=== PATIENT | male | born 1970 | race Caucasian/White ===

== ENCOUNTER 2018-03-28 08:45 | Inpatient (IN) | payer OTHER ==
--- NOTE | 2018-03-28 08:47 | EDPHY ---
H & P Time Seen by Provider: 03/28/18 08:46 HPI/ROS: CHIEF COMPLAINT: Chest pressure HISTORY OF PRESENT ILLNESS: The patient presents the ED after he developed substernal chest pressure after waking up this morning. The patient thought he may have simply been experiencing bad indigestion. He did take some antacids without improvement. Given the severity of the symptoms he contacted 911. The patient was noted to have no evidence of ST segment elevation on his EKG. The patient was given nitroglycerin and fentanyl with significant improvement of his symptoms. He currently complains of a 2/10 chest discomfort. The patient does have a history of hypertension which is not treated with medications. He reports his mother's had a history of myocardial infarction x2. The patient denies any history of exertional chest pain or shortness of breath. The patient denies any significant radiation of his chest discomfort. REVIEW OF SYSTEMS: A comprehensive 10 point review of systems is otherwise negative aside from elements mentioned in the history of present illness. Source: Patient - Medical/Surgical History Other PMH: Past medical history: Hypertension - Social History Alcohol Use: None Drug Use: None - Physical Exam Exam: General Appearance: Alert, no distress Eyes: Pupils equal and round no pallor or injection ENT, Mouth: Mucous membranes moist Respiratory: There are no retractions, lungs are clear to auscultation Cardiovascular: Regular rate and rhythm Gastrointestinal: Abdomen is soft and nontender, no masses, bowel sounds normal Neurological: A&O, normal motor function, normal sensory exam, normal cranial nerves Skin: Warm and dry, no rashes Musculoskeletal: Neck is supple nontender Extremities: symmetrical, full range of motion Constitutional: Initial Vital Signs Temperature (C) 36.8 C 03/28/18 08:48 Heart Rate 75 03/28/18 08:48 Respiratory Rate 16 03/28/18 08:48 Blood Pressure 144/98 H 03/28/18 08:48 O2 Sat (%) 94 03/28/18 08:48 O2 Delivery Mode Room Air Allergies/Adverse Reactions: No Known Allergies Allergy (Unverified 03/28/18 08:52) Home Medications: Medication Instructions Recorded NK [No Known Home Meds] 03/28/18 Medical Decision Making - Diagnostics EKG Interpretation: EKG: Complete interpretation has been separately recorded in the [employer] archive. Summary impression: Sinus rhythm, rate 69, the peak T-waves noted in the precordial leads Imaging Results: Imaging Impressions Chest X-Ray 03/28/18 08:52 Impression: 1. Heart size upper limits of normal. No active cardiopulmonary disease seen. ED Course/Re-evaluation: The patient presents to the ED acute chest pain that began earlier this morning. The patient arrives to the emergency department with an EKG which does demonstrate some hyperacute T-waves in the precordial leads with some minimal ST segment elevation noted in lead II and the lateral precordial leads. The patient received aspirin and nitroglycerin and fentanyl prior to arrival. He currently is complaining of 2/10 pain. I did consult with Dr. Smooth Collier from Cardiology and requested an emergent cardiology consult at 9:05AM. Bedside echo was being performed. Initial troponin is negative. The patient received additional IV morphine and nitroglycerin in the emergency department. Chest x-ray is reviewed by myself demonstrates no evidence of an abnormally wide mediastinum. 9:20 a.m.: Dr. Alberto at bedside, bedside echocardiogram does demonstrate a wall motion abnormality. The patient will be taken emergently to the cardiac catheterization lab for further evaluation. Differential Diagnosis: Differential diagnosis considered includes aortic dissection, pulmonary embolism , myocardial infarction, esophageal spasm Critical Care Time: Critical care time exclusive of procedures and exclusive of the PA's time was 35 minutes, performed by myself, Iglesia Puente MD. The patient presents to the ED with acute coronary syndrome which required the immediate consultation of our senior program manager. The patient will be taken emergently to the cardiac catheterization lab. - Data Points Laboratory Results: Laboratory Results 03/28/18 08:55 03/28/18 08:55 03/28/18 03/28/18 03/28/18 08:55 08:55 08:53 WBC 7.93 10^3/uL 10^3/uL (3.80-9.50) RBC 5.23 10^6/uL 10^6/uL (4.40-6.38) Hgb 16.9 g/dL g/dL (13.7-17.5) Hct 50.0 % % (40.0-51.0) MCV 95.6 fL fL (81.5-99.8) MCH 32.3 pg pg (27.9-34.1) MCHC 33.8 g/dL g/dL (32.4-36.7) RDW 11.9 % % (11.5-15.2) Plt Count 205 10^3/uL 10^3/uL (150-400) MPV 9.9 fL fL (8.7-11.7) Neut % (Auto) 62.3 % % (39.3-74.2) Lymph % (Auto) 30.4 % % (15.0-45.0) [place] % (Auto) 5.0 % % (4.5-13.0) Eos % (Auto) 1.0 % % (0.6-7.6) Baso % (Auto) 0.9 % % (0.3-1.7) Nucleat RBC Rel Count 0.0 % % (0.0-0.2) Absolute Neuts (auto) 4.94 10^3/uL 10^3/uL (1.70-6.50) Absolute Lymphs (auto) 2.41 10^3/uL 10^3/uL (1.00-3.00) Absolute Monos (auto) 0.40 10^3/uL 10^3/uL (0.30-0.80) Absolute Eos (auto) 0.08 10^3/uL 10^3/uL (0.03-0.40) Absolute Basos (auto) 0.07 10^3/uL 10^3/uL (0.02-0.10) Absolute Nucleated RBC 0.00 10^3/uL 10^3/uL (0-0.01) Immature Gran % 0.4 % % (0.0-1.1) Immature Gran # 0.03 10^3/uL 10^3/uL (0.00-0.10) Sodium 141 mEq/L mEq/L (135-145) Potassium 4.7 mEq/L mEq/L (3.3-5.0) Chloride 105 mEq/L mEq/L (97-110) Carbon Dioxide 26 mEq/l mEq/l (22-31) Anion Gap 10 mEq/L mEq/L (6-14) BUN 15 mg/dL mg/dL (7-23) Creatinine 1.0 mg/dL mg/dL (0.7-1.3) Estimated GFR > 60 Glucose 117 mg/dL H mg/dL (70-100) Calcium 9.6 mg/dL mg/dL (8.5-10.4) POC Troponin I 0.08 ng/mL ng/mL (0.00-0.08) Medications Given: Nitroglycerin (Nitrostat) 0.4 mg SL Q5M PRN PRN Reason: Chest Pain Last Admin: 03/28/18 09:12 Dose: 0.4 tab Point of Care Test Results: Chemistry 03/28/18 08:53 POC Troponin I 0.08 ng/mL ng/mL (0.00-0.08) Departure - Departure Disposition: [facility] Inpatient Acute Clinical Impression: Acute coronary syndrome Condition: Good Referrals: Patient,NotPresent [Primary Care Provider] - As per Instructions
[2018-03-28] MEDS ORDERED: NITROGLYCERIN 0.4 MG BTL SL PRN (09:05)
[2018-03-28 09:07] LABS: PLATELET COUNT 205 10^3/uL (150-400)
[2018-03-28] MEDS ORDERED: LIDOCAINE 1% 300 MG/30 ML SDV ONE (09:28)
[2018-03-28] MEDS ORDERED: fentaNYL 100 MCG/2 ML INJ ONE (09:28)
[2018-03-28] MEDS ORDERED: MIDAZOLAM 2 MG/2 ML VIAL ONE ×2 (09:28→10:51)
[2018-03-28] MEDS ORDERED: IOPAMIDOL (ISOVUE-370) 150 ML BTL IV ONE (09:28)
[2018-03-28] MEDS ORDERED: BIVALIRUDIN 250 MG/5 ML VIAL IV ONE (09:50)
--- NOTE | 2018-03-28 09:52 | CPEKG ---
Test Reason : OPEN Blood Pressure : / mmHG Vent. Rate : 069 BPM Atrial Rate : 069 BPM P-R Int : 183 ms QRS Dur : 099 ms QT Int : 383 ms P-R-T Axes : 044 073 041 degrees QTc Int : 411 ms Sinus rhythm Abnormal inferior Q waves ST elev, probable normal early repol pattern Confirmed by Iglesia Puente ([id number]) on 03/28/2018 9:51:48 AM Referred By: Confirmed By:Iglesia Puente
[2018-03-28] MEDS ORDERED: METOPROLOL TARTRATE 5 MG/5 ML INJ ONE (10:01)
[2018-03-28] MEDS ORDERED: ABCIXIMAB 10 MG/5 ML VIAL ONE (10:04)
--- NOTE | 2018-03-28 10:20 | GHP ---
DATE OF ADMISSION: 03/28/2018 HISTORY OF PRESENT ILLNESS: The patient is a 48-year-old man who was awakened from sleep by his alar m as usual, got up, start going around, getting around for the morning, and then felt acute onset of severe retrosternal chest pressure and indigestion, which radiated to his neck, arm, back, and jaw, a nd he felt sweaty. 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 EMS obtained an EKG and the patient was brought emergently to [facility]. His pa in was partially resolved by intravenous fentanyl established in the ambulance. EKG was obtained her e with hyperacute T-waves suggestive of an injury pattern. I was asked to see the patient in emergen cy consultation. An echocardiogram was being done at the time of the procedure and the patient had d istal anterior wall and apical hypokinesis, as well as distal inferior wall hypokinesis suggestive of myocardial injury from a wraparound type LAD. The patient's pain was down to 2/10 with oral aspirin and sublingual nitroglycerin. PAST MEDICAL HISTORY: Pertinent for recent elevations in cholesterol for which he has taken fish oil . He did have a history of hypertension, but has been off medications for over a year. He is not cu rrently taking medications. He is not diabetic. ALLERGIES: He is not known to be allergic to any medications. SOCIAL HISTORY: Pertinent for the fact that he does not smoke. He smoked as a teenager, but quit at age 22. 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 He does not abuse alcohol or illicit drugs. FAMILY HISTORY: Pertinent for positive premature family history in his mother who had her first hear t attack at age 60. PHYSICAL EXAMINATION: GENERAL: The patient is anxious and diaphoretic. VITAL SIGNS: Blood pressur e is 120/76, pulse was 68 and regular, respirations 16 and unlabored. NECK: No JVD. HEART: Normal S1, S2 with a positive S4. LUNGS: Clear to auscultation anteriorly bilaterally. ABDOMEN: Benign. Positive bowel sounds. Nondistended, nontender. EXTREMITIES: Cool, but dry and not clammy. IMPRESSION/PLAN: Acute coronary syndrome with evidence of hyperacute T-wave changes and wall motion abnormalities on echocardiogram suggestive of anterior myocardial infarction. The patient should be taken to the catheterization laboratory for definitive intervention. I have explained the risks, bruce efits, and alternatives of this course of action to the patient who understands and is willing to pro ceed as planned. Copy requested to: Primary care physician /[id number]/MODL
[2018-03-28] MEDS ORDERED: niCARdipine 25 MG/10 ML VIAL IV ONE (10:31)
[2018-03-28] MEDS ORDERED: NITROGLYCERIN 1,500 MCG/15 ML VIAL MISC ONE (10:32)
[2018-03-28] MEDS ORDERED: PRASUGREL HCL 10 MG TAB ONE (10:39)
--- NOTE | 2018-03-28 10:56 | ECHO ---
[email or web address] [address] [address] Main: [phone] Fax: Transthoracic Echocardiogram Name: MODESTA DE LEON MR#: [id number] Study Date: 03/28/2018 Study Time: 09:11 AM Date of : 1970 Age: 48 year(s) Height: 198.1 cm (78 in.) Weight: 107.96 kg (238 lb.) BSA: 2.43 m2 Gender: Male Examination: Echo Indication: Chest Pain Image Quality: Adequate Contrast: Requested by: Iglesia Puente BP: 136 mmHg/99 mmHg Heart Rate: Rhythm: Indication: Chest Pain Procedure Staff Card Runner: Anahi Avila [facility] Reading Physician: Christopher Khalil MD Requesting Provider: Conclusions: No pericardial effusion. Anterior apical akinesis. In the setting of chest pain concern for anterior wall myocardial infarction. No significant valvular abnormalities by Doppler 2 dimensional study. Measurements: Chambers Valvular Assessment AV/MV Valvular Assessment TV/PV Normal Normal Normal Name Value Range Name Value Range Name Value Range Ao Angelita (2D): 3.2 cm (1.4 cm-2.6 AV Vmax: 1.14 m/s (1 m/s-1.7 PV Vmax: 0.88 m/s (0.6 m/s-0.9 cm) m/s) m/s) IVSd (2D): 1.1 cm (0.6 cm-1.1 AV maxP mmHg ( - ) PV PGmax: 3 mmHg ( - ) cm) AV meanP mmHg ( - ) LVDd (2D): 4.8 cm (4.2 cm-5.9 LVOT Vmax: 1.02 m/s (0.7 m/s-1.1 cm) m/s) LVDs (2D): 3.3 cm (2.1 cm-4 ROGER (Vmax): 2.8 cm2 ( - ) cm) ROGER (VTI): 3.0 cm ( - ) LVPWd (2D): 1.1 cm (0.6 cm-1 MV E Vmax: 1.02 m/s ( - ) cm) MV A Vmax: 0.89 m/s ( - ) LVOTd 2.0 cm 2.0 cm mm MV E/A: 1.15 ( - ) LVEF (BP): 44 % (>=55 %) MV PHT: 0.054 s ( - ) RVDd(2D): 3.1 cm (1.9 cm-3.8 cmmm) MVA (PHT): 4.1 s ( - ) Continued Measurements: Chambers Valvular Assessment AV/MV Name Value Name Value LADs: 3.5 cm MV DecTime: 180 m/s LADs Lon.8 cm MV E/E' Septal: 11.50 LA Area: 18.3 cm2 MV E/E' Lateral: 10.60 Patient: MODESTA DE LEON Study Date: 03/28/2018 Page 1 of 2 09:11 AM LA Volume: 55 ml LA Volume Index: 22.6 ml/m2 RA Area: 14.6 cm2 Additional Vessels Name Value Ao Ascendin.3 cm Findings: Left Ventricle: Normal size left ventricle. No LV hypertrophy. Regional wall motion abnormality noted. Normal diastolic LV function. Apical hypokinesis. Right Ventricle: Normal size right ventricle. Normal RV function. Left Atrium: The left atrium is normal in size. Right Atrium: The right atrium is normal in size. Mitral Valve: The mitral valve is normal in appearance and function. Trivial mitral valve regurgitation. No mitral stenosis is present. Aortic Valve: The aortic valve is tri-leaflet. Trivial aortic valve regurgitation. No aortic valve stenosis is present. Tricuspid Valve: The tricuspid valve is normal in appearance and function. Trivial tricuspid valve regurgitation. Pulmonic Valve: The pulmonic valve is normal in appearance and function. There is no pulmonic regurgitation seen. Aorta: The aorta is normal. Normal size aortic root measuring 3.2 cm. Normal size ascending aorta measuring 3.3 cm. Pericardium: Trivial pericardial effusion. No pleural effusion. (No Signature Object) Patient: MODESTA DE LEON Study Date: 03/28/2018 Page 2 of 2 09:11 AM [id number]
[2018-03-28] MEDS ORDERED: LORazepam 2 MG/ML INJ IVP PRN (11:04)
[2018-03-28] MEDS ORDERED: ONDANSETRON DISINTEGRATING 4 MG TAB PO PRN (11:04)
[2018-03-28] MEDS ORDERED: HYDROCODONE/APAP 5/325 TAB PO PRN (11:04)
[2018-03-28] MEDS ORDERED: ATROPINE SULFATE 1 MG/10 ML SYR IVP PRN (11:04)
[2018-03-28] MEDS ORDERED: PRASUGREL HCL 10 MG TAB PO ONE (11:04)
[2018-03-28] MEDS ORDERED: ONDANSETRON 4 MG/2 ML VIAL IVP PRN (11:04)
[2018-03-28] MEDS ORDERED: ACETAMINOPHEN 325 MG TAB PO PRN (11:04)
[2018-03-28] MEDS ORDERED: TEMAZEPAM 15 MG CAP PO PRN (11:04)
[2018-03-28] MEDS ORDERED: NS 1,000 ML IV SCH (11:15)
[2018-03-28] MEDS: ROSUVASTATIN CALCIUM 20 MG TAB PO SCH (12:43)
--- NOTE | 2018-03-28 13:16 | CPIP ---
DATE OF PROCEDURE: 03/28/2018 PROCEDURE PERFORMED: 1. Selective coronary angiography. 2. Left heart catheterization. 3. Left ventriculogram. 4. Percutaneous transluminal coronary angioplasty and stent placement of the mid left anterior desce nding with the use of 3.0 x 20 Synergy drug-eluting stent. 5. Percutaneous transluminal coronary angioplasty of the proximal left anterior descending with the use of a 3.5 x 32 Synergy drug-eluting stent. 6. Intra-aortic balloon pump insertion. COMPLICATIONS: None. MOLD PARTER: Kaden Alberto MD INDICATIONS/APPROPRIATE USE CRITERIA: The patient presented with an acute coronary syndrome and hype racute T-waves consistent with that diagnosis that extended from the V1 through V6 without reciprocal change, but compatible changes in II, III, and aVF consistent with probable LAD occlusion. For this reason, the patient was encouraged to proceed emergently to the catheterization laboratory. There w as some delay in obtaining the patient's consents, which may have delayed the door to balloon time. PROCEDURE IN DETAIL: After informed consent was obtained, n.p.o. status was confirmed, the patient w as taken emergently to the cardiac catheterization laboratory. The region of the right groin was twan aned, prepped, and draped in sterile fashion. Approximately 15 cc of 1% lidocaine was utilized for l ocal anesthesia. A micropuncture set was used to gain access to the right common femoral artery. The patient then und erwent the previously mentioned diagnostic procedure with use of JR4 and a pigtail catheter. A 6-[facility] guiding catheter was used for initial approach to the left coronary system. The right coronary a rtery is dominant giving rise to posterior descending and posterolateral ventricular branch. There i s no evidence of flow-limiting obstruction, dissection, or thrombus. There is evidence of significant calcification within the LAD. There is evidence of significant calc ification within the LAD on cinefluoroscopy and there was no evidence of right to left collaterals to the LAD proper on injection of the right coronary system. The diagnostic shots were taken with a gu iding catheter because of suspected occlusion of the LAD on the basis on the patient's clinical prese ntation and his EKG changes. The left main coronary lumen is 8 mm in size and bifurcates into an LAD and circumflex system. The circumflex vessel is 3.5 mm in size proximally, gives rise to an importa nt obtuse marginal branch, which is free of flow-limiting disease. There is evidence of significant calcification on cinefluoroscopy within the LAD as previously noted, consistent with underlying ather osclerosis. The LAD arises in initial usual location, is 3.5 mm in size proximally. It gives rise t o a small and early diagonal branch, which comes off at right angles from the LAD proper. There is a hazy region of the proximal segment of the LAD, after which there is dye streaming into a 2nd diagon al, and then a flush occlusion of the LAD consistent with a thrombotic and embolic myocardial infarct ion involving the LAD territory. An Intuition wire was advanced across the lesion in question and the vessel was primarily ballooned w ith a 2 0 x 15 Emerge balloon at a maximum pressure of 11 atmospheres without improvement in the ANAND 0 flow, which was initially present. An aspiration catheter was used to then gain access to the dis lenora vessel and 4 aspiration runs were performed with some red thrombus retrieved from the mid distal LAD. The patient still had no evidence of significant flow within the LAD, and therefore, intracoron ajith ReoPro was given as a bolus with subsequent improvement of the flow to ANAND-3 flow to the distal LAD. The LAD is, indeed, a wrap-around vessel and goes around the apex and feeds the distal apex and inferior wall. We then ballooned and stented the region of the original complete occlusion of the L AD with a 3.0 x 20 Synergy drug-eluting stent with excellent angiographic results and 0% residual michelle nosis status post PTCA and stent placement. There was minor pinching of the ostial side branch takeo ff of the 2nd diagonal, but with good ANAND-3 flow into that vessel. We then turned our attention to the proximal LAD, which was then primarily stented with a 3.5 x 32 Sy nergy drug-eluting stent at a maximum pressure of 16 atmospheres. This resulted in no reflow of the LAD, which responded well to intracoronary nitroglycerin and nicardipine. Ultimately, there was ANAND -2-1/2 flow to the distal vessel. We did not have stock of ReoPro to continue a bolus, so the patien t was given 60 mg of oral Effient, and the Angiomax was continued to try to reduce risk of thrombosis . The patient underwent left heart catheterization demonstrating significantly elevated left ventricula r end-diastolic pressure measured at 35 mmHg. The patient underwent left ventriculogram in the [facility] p rojection demonstrating severely depressed left ventricular systolic function. Ejection fraction is 25% with mid distal and apical anterior wall hypokinesis with distal inferior wall hypokinesis as wel l consistent with a large wrap-around LAD infarction. There was no evidence of a gradient upon pullb ack across the aortic valve. There were 3 sinuses of Valsalva most consistent with a trileaflet aort ic valve, and the visualized portion of the proximal thoracic aorta was normal in caliber without fra nk dissection or staining. Because of the patient's reduced ejection fraction, his delayed presentation, as well as the elevated LVEDP, we thought it would be in his best interest to have a balloon pump. Femoral angiography was performed documenting a common femoral artery stick and an adequate arterial size for sheath and ball oon pump placement. The 6-Tanzanian sheath was exchanged for an 8-Tanzanian sheath with a balloon dilator. A 50 cc balloon was then advanced over wire and placed with the tip just distal to the left subclav alondra take-off and was documented to be inflating and deflating appropriately and in time with the mindy ent's cardiac rhythm. IMPRESSION: Successful balloon angioplasty and stent implantation with primary percutaneous coronary intervention for indication of acute coronary syndrome with anterior and apical ST-elevation myocard ial infarction. The patient will be admitted to the ICU in critical, but stable condition, and will remain on the balloon pump for the next 36 hours. The patient will be started on appropriate managem ent with beta yelitza, CHAD inhibitor, HMG-CoA reductase inhibitor/statin, and aldosterone antagonist given the location and severity of his myocardial infarction. /[id number]/MODL
--- NOTE | 2018-03-28 13:23 | CPEKG ---
Test Reason : OPEN Blood Pressure : / mmHG Vent. Rate : 068 BPM Atrial Rate : 067 BPM P-R Int : 182 ms QRS Dur : 104 ms QT Int : 395 ms P-R-T Axes : 048 091 056 degrees QTc Int : 421 ms Sinus rhythm Anterior infarct, old Minimal ST elevation, inferior leads Confirmed by Dominick Jewell ([id number]) on 03/28/2018 1:22:38 PM Referred By: Confirmed By:Dominick Jewell
--- NOTE | 2018-03-28 13:31 | PDMN ---
Medical Necessity Medical necessity: MCG: M230 MD 2 days: CP with radiation to neck, arm, back and jaw. EKG shows abnormal inferior Q waves, ST elevation, Emergent cardiac cath, balloon angioplasty with MARIBEL to mid LAD,
[2018-03-28 14:21] LABS: CREATINE KINASE 2809 IU/L (0-224)
--- NOTE | 2018-03-28 17:39 | GCON ---
PULMONARY/CRITICAL CARE CONSULTATION DATE OF CONSULTATION: 03/28/2018 REFERRING PHYSICIAN: Kaden Alberto MD REASON FOR CONSULTATION: Evaluation and management of hyperglycemia in the setting of an acute myoca rdial infarction. HISTORY OF PRESENT ILLNESS: The patient is a 48-year-old male who was in his usual state of good hea lth when he woke up this morning, and shortly after he got up, he noted the onset of severe retroster nal chest pain with indigestion. The pain radiated to his neck, arm and jaw and he had diaphoresis. He called EMS. An ECG was done and he was brought emergently to [facility]. His pa in was improved with IV fentanyl. An ECG demonstrated peaked T-waves suggesting possible acute injur y. An echocardiogram showed regional wall motion abnormalities. The patient was taken emergently to the catheterization lab where an acute occlusion of the LAD was identified and treated with PTCA and thrombus evacuation. Because of an elevated LVEDP at 35 and an ejection fraction estimated at 25%, the intraaortic balloon pump was placed. The patient was transported to the intensive care unit in g ood condition. He denies chest pain or shortness of breath. He has a history of mild intermittent s noring, but no dyspnea with exertion at baseline. PAST MEDICAL HISTORY: Significant for hypercholesterolemia, hypertension, previously treated, but cu rrently off medications. MEDICATIONS: None. ALLERGIES: None. SOCIAL HISTORY: The patient has a trivial history of smoking before he was 22. He denies alcohol us e. FAMILY HISTORY: Remarkable for coronary artery disease in his mother in her mid 60s. REVIEW OF SYSTEMS: A 10-point review of systems adds nothing to the history of present illness. PHYSICAL EXAMINATION: GENERAL: The patient is awake and alert, lying in bed with an intraaortic bal loon pump in place. VITAL SIGNS: Blood pressure is 128/78 with a heart rate of 68. He is afebrile. Oxygen saturations are 99% on 2 L. HEENT: Normocephalic and atraumatic. No icterus. NECK: No J VD. Trachea is midline. CHEST: Clear to auscultation. CARDIAC: Regular rate and rhythm with an i ntraaortic balloon pump. ABDOMEN: Soft, nontender. Bowel sounds are present. EXTREMITIES: No clu bbing, cyanosis, or edema. NEURO: The patient is awake and alert. He has no gross motor or sensory deficits. LABORATORY: Chemistry group is normal with the exception of a glucose of 117. CPK is 2809 with 5% S MB fraction. Troponin is 92. BNP is 68. Hemoglobin is 16.9. EKG showed peaked T-waves. A chest x-ray shows no infiltrates. There is borderline cardiomegaly. Images reviewed by me. An echocardio gram shows apical hypokinesis. ASSESSMENT: 1. Acute coronary syndrome. The patient presented with an acute myocardial infarction with regional wall motion abnormalities and had emergent percutaneous transluminal coronary angioplasty and thromb us evacuation. He now has an intraaortic balloon pump. His troponins and CK-MBs are markedly elevat ed, suggesting significant myocardial injury. 2. Hyperglycemia. This is very mild. The patient has no prior history of diabetes. RECOMMENDATIONS: 1. Acute cardiac care per Dr. Alberto. The patient will be treated with antithrombotics as well as a fterload reduction and beta blockers and antiplatelet agents as per Dr. Alberto. 2. Given that the patient lives at 8000 feet, I think that overnight oximetry should be performed on ce the patient has been discharged and is on room air. This can help determine if the patient might have some occult obstructive sleep apnea or just altitude-related hypoxemia, which could be exacerbat ed by the patient's cardiac status and also could inhibit his recovery if he has significant hypoxemi a. /[id number]/MODL
[2018-03-28] MEDS: CARVEDILOL 3.125 MG TAB PO SCH (18:18)
[2018-03-28] MEDS: ENOXAPARIN 100 MG/ML SYR SC SCH (20:24)
[2018-03-29 06:58] LABS: CREATINE KINASE 873 IU/L (0-224)
[2018-03-29] MEDS: ENOXAPARIN 100 MG/ML SYR SC SCH ×2 (09:14→21:38)
[2018-03-29] MEDS: LISINOPRIL 5 MG TAB PO SCH (09:14)
[2018-03-29] MEDS: PRASUGREL HCL 10 MG TAB PO SCH (09:15)
[2018-03-29] MEDS: ASPIRIN EC 325 MG TAB PO SCH (09:15)
[2018-03-29] MEDS: EPLERENONE 25 MG TAB PO SCH (09:15)
[2018-03-29] MEDS: ROSUVASTATIN CALCIUM 20 MG TAB PO SCH (09:15)
[2018-03-29] MEDS: CARVEDILOL 3.125 MG TAB PO SCH ×2 (09:15→19:02)
--- NOTE | 2018-03-29 10:59 | CPEKG ---
Test Reason : OPEN Blood Pressure : / mmHG Vent. Rate : 074 BPM Atrial Rate : 073 BPM P-R Int : 179 ms QRS Dur : 101 ms QT Int : 358 ms P-R-T Axes : 034 091 072 degrees QTc Int : 398 ms Sinus rhythm Probable anteroseptal infarct, recent Confirmed by Dominick Jewell ([id number]) on 03/29/2018 10:59:08 AM Referred By: Confirmed By:Dominick Jewell
--- NOTE | 2018-03-29 12:33 | ASMTCMCOM ---
CM Note CM Note Notes: Pt admitted yesterday morning for acute myocardial infarction and underwent LAD stent placement. Pt lives in [place], is single, though significant other, Suzy, attended rounds. Pt is currently on bedrest with a balloon pump placed and no therapies ordered at this time. Anticipate pt will discharge independently. CM to follow. D/C Plan: Independent Date Signed: 03/29/2018 12:32 PM Electronically Signed By:Vee Martinez
--- NOTE | 2018-03-29 13:56 | PDINTPN ---
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 Intra-aortic balloon pump in place. Constipation: Exacerbated by able immobility from intra-aortic balloon pump. Plan: Stool softener. Wean and hopefully remove balloon pump tomorrow morning. Overnight oximetry after discharge. 03/29/18 13:54 Subjective: C/O low back pain. Denies CP, cough, dyspnea. No BM. Objective: Vital Signs Temp Pulse Resp BP Pulse Ox 36.8 C 74 15 107/48 L 98 03/29/18 12:00 03/29/18 13:00 03/29/18 13:00 03/29/18 13:00 03/29/18 13:00 03/28/18 03/29/18 03/30/18 05:59 05:59 05:59 Intake Total 1740 Output Total 1625 550 Balance 115 -550 Physical Exam - Physical Exam General Appearance: alert, no apparent distress EENT: normal ENT inspection Neck: normal inspection Respiratory: lungs clear, normal breath sounds Cardiac/Chest: normal peripheral pulses, regular rate, rhythm, No edema Abdomen: normal bowel sounds, non-tender, soft Skin: normal color, warm/dry Extremities: normal inspection Neuro/Psych: alert, normal mood/affect, oriented x 3 ICD10 Worksheet Patient Problems: Problems Problem Status Onset Acute coronary syndrome Acute
--- NOTE | 2018-03-29 22:19 | PDCARPN ---
Cardiology Progress Note Chief Complaint: s/p acute infarct intervention and IABP placement Assessment/Plan: Assessment:1. S/P STEMI involving proximal and mid lad treated with primary angioplasty and stent implantation. The patient had reduced ejection fraction and elevated LVEDP with relatively late reperfusion and therefore IABP was placed. The troponin level peaked at 93.3 and peaked early. The IABP site is oozing around the insertion site but the IABP is augmenting well. Plan to hold Lovenox after this evening dose. IABP wean in am at 6 am 1;2 then 8 am 1;4 plan to remove in mid morning if pump wean is tolerated. continue B yelitza CHAD, statin and aldosterone antagonist. Plan:As above. 03/29/18 22:31 Subjective: My back is a little sore from lying here. My chest does not hurt at all. Reviewed/Discussed With: family, hospitalist, multidisciplinary team Time Spent with Patient: greater than 35 minutes Time Spent with Patient: Greater than 35 minutes spent on this patients care, greater than 50% of time spent counseling, educating, and coordinating care regarding the above mentioned plan. Objective: Vital Signs (8 Hrs) Temp Pulse Resp BP Pulse Ox 03/29/18 21:00 72 15 105/63 97 03/29/18 20:00 75 16 99/59 L 97 03/29/18 19:02 77 101/62 03/29/18 19:00 74 20 101/62 98 03/29/18 18:00 77 20 109/52 L 93 03/29/18 17:00 74 17 108/54 L 92 03/29/18 16:00 37.2 C 71 16 122/65 H 97 03/29/18 15:00 80 26 H 103/52 L 96 Intake/Output (24 Hrs) 03/28/18 03/29/18 03/30/18 05:59 05:59 05:59 Intake Total 1740 650 Output Total 1625 550 Balance 115 100 Intake: Oral (ml) 900 650 IV Infused (ml) 840 Ns 1,000 ml @ 100 mls/hr 840 IV CONT TAHMINA Rx#: [id number] Output: Urine (ml) 1625 550 Urinal 1625 550 Other: Weight 112.5 kg Number of Voids Urinal 1 Result Diagrams: 03/28/18 08:55 03/28/18 08:55 Cardiac Labs: Cardiac Lab Results (72 Hrs) 03/29/18 03/29/18 03/28/18 05:25 00:15 18:00 CK-MB (CK-2) Fraction 31.90 H Troponin I 39.500 H 64.600 H 93.300 H 03/28/18 12:45 CK-MB (CK-2) Fraction 140.00 H Troponin I 92.200 H EKG: Sinus rhythm recent anterior and anteroseptal UT with persistent ST elevation in V1 and V2. Abnormal EKG. Telemetry: Sinus rhythm occasional PVC's no VT Echocardiogram: not yet performed. - Physical Exam Constitutional: no apparent distress Eyes: PERRL, EOMI, anicteric sclera Ears, Nose, Mouth, Throat: moist mucous membranes, no oral ulcers, no thrush Cardiovascular: regular rate and rhythm, no murmurs, no rubs, no gallops Respiratory: clear to auscultate bilat, no crackles, no wheezes, reduced air movement Gastrointestinal: normoactive bowel sounds, no tenderness, no masses Neurologic: AAOx3 Psychiatric: cooperative, interactive, following commands - . Pending Discharge Within 48 Hours: Yes ICD10 Worksheet Patient Problems: Problems Problem Status Onset ST elevation (STEMI) myocardial infarction involving left anterior descending coronary artery Acute Acute coronary syndrome Acute
[2018-03-30] MEDS: CARVEDILOL 3.125 MG TAB PO SCH ×2 (08:26→18:56)
[2018-03-30] MEDS: ASPIRIN EC 325 MG TAB PO SCH (08:27)
[2018-03-30] MEDS: EPLERENONE 25 MG TAB PO SCH (08:27)
[2018-03-30] MEDS: ROSUVASTATIN CALCIUM 20 MG TAB PO SCH (08:28)
[2018-03-30] MEDS: PRASUGREL HCL 10 MG TAB PO SCH (08:28)
[2018-03-30] MEDS: LISINOPRIL 5 MG TAB PO SCH (08:28)
[2018-03-30] MEDS: ENOXAPARIN 100 MG/ML SYR SC SCH ×2 (08:31→22:24)
[2018-03-30] MEDS ORDERED: MIDAZOLAM 2 MG/2 ML VIAL IVP ONE (11:45)
[2018-03-30] MEDS ORDERED: LIDOCAINE 1% 300 MG/30 ML SDV IF ONE (11:45)
--- NOTE | 2018-03-30 13:14 | PDINTPN ---
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 Intra-aortic balloon pump came out at noon Constipation: Exacerbated by able immobility from intra-aortic balloon pump. Plan: Stool softener. Start to increase activities evening. Overnight oximetry after discharge. 03/30/18 13:13 Subjective: Slept well. Denies pain/dyspnea. Appetite good. Objective: Vital Signs Temp Pulse Resp BP Pulse Ox 36.6 C 81 20 118/84 H 94 03/30/18 12:00 03/30/18 12:00 03/30/18 12:00 03/30/18 12:00 03/30/18 12:00 Laboratory Results 03/30/18 05:10 03/29/18 03/30/18 03/31/18 05:59 05:59 05:59 Intake Total 1740 1150 Output Total 1625 1500 Balance 115 -350 Physical Exam - Physical Exam General Appearance: alert, no apparent distress EENT: normal ENT inspection Neck: normal inspection Respiratory: lungs clear, normal breath sounds, No respiratory distress Cardiac/Chest: regular rate, rhythm, No edema Abdomen: normal bowel sounds, non-tender Skin: normal color, warm/dry Extremities: normal inspection Neuro/Psych: alert, normal mood/affect, oriented x 3 ICD10 Worksheet Patient Problems: Problems Problem Status Onset Acute coronary syndrome Acute ST elevation (STEMI) myocardial infarction involving left anterior descending coronary artery Acute
--- NOTE | 2018-03-30 16:34 | CPEKG ---
Test Reason : OPEN Blood Pressure : / mmHG Vent. Rate : 077 BPM Atrial Rate : 079 BPM P-R Int : 173 ms QRS Dur : 108 ms QT Int : 387 ms P-R-T Axes : 000 -88 -88 degrees QTc Int : 438 ms Sinus rhythm Left anterior fascicular block Probable anterior infarct, age indeterminate Lead(s) I were not used for morphology analysis Confirmed by Dominick Jewell ([id number]) on 03/30/2018 4:33:57 PM Referred By: Confirmed By:Dominick Jewell
--- NOTE | 2018-03-30 18:33 | PDCARPN ---
Cardiology Progress Note Chief Complaint: I AM FEELING FINE AND HAVE NO CHEST PAIN Assessment/Plan: Assessment:1. S/P STEMI involving proximal and mid lad treated with primary angioplasty and stent implantation. The patient had reduced ejection fraction and elevated LVEDP with relatively late reperfusion and therefore IABP was placed. The troponin level peaked at 93.3 and peaked early. IABP wean this am at 6 am 1:2 then 8 am 1:4 was tolerated andn the IABP was removed with 40 minutes of bedside time. Continue B yelitza CHAD, statin and aldosterone antagonist. Echo in AM with Definity contrast to rule out apical thrombus. Plan:As above. 03/30/18 18:29 Subjective: I am ready to get this balloon pump out of my leg. Reviewed/Discussed With: family, hospitalist, multidisciplinary team Time Spent with Patient: greater than 35 minutes Time Spent with Patient: Greater than 35 minutes spent on this patients care, greater than 50% of time spent counseling, educating, and coordinating care regarding the above mentioned plan. Objective: Vital Signs (8 Hrs) Temp Pulse Resp BP Pulse Ox 03/30/18 17:00 72 14 114/85 H 93 03/30/18 16:00 37 C 75 15 120/75 94 03/30/18 15:00 74 17 120/86 H 97 03/30/18 14:00 70 14 120/88 H 95 03/30/18 13:00 72 17 114/80 96 03/30/18 12:00 36.6 C 81 20 118/84 H 94 03/30/18 11:00 70 16 108/71 94 Intake/Output (24 Hrs) 03/29/18 03/30/18 03/31/18 05:59 05:59 05:59 Intake Total 1740 1150 Output Total 1625 1500 550 Balance 115 -350 -550 Intake: Oral (ml) 900 1150 IV Infused (ml) 840 Ns 1,000 ml @ 100 mls/hr 840 IV CONT TAHMINA Rx#: [id number] Output: Urine (ml) 1625 1500 550 Urinal 1625 1500 550 Other: Weight 112.5 kg Number of Voids Urinal 1 Result Diagrams: 03/28/18 08:55 03/30/18 05:10 Cardiac Labs: Cardiac Lab Results (72 Hrs) 11/14/18 11/14/18 11/13/18 05:25 00:15 18:00 CK-MB (CK-2) Fraction 31.90 H Troponin I 39.500 H 64.600 H 93.300 H 03/28/18 12:45 CK-MB (CK-2) Fraction 140.00 H Troponin I 92.200 H EKG: The patient has developed left anterior fascicular block is new on his EKG from today, suggestive of known anteroseptal injury. Telemetry: sinus rhythm with new left anterior fascicular block Echocardiogram: PENDING IN AM - Physical Exam Constitutional: WDWN, no apparent distress Eyes: PERRL, EOMI, anicteric sclera Ears, Nose, Mouth, Throat: moist mucous membranes Cardiovascular: regular rate and rhythm, no murmurs, no rubs, no gallops Respiratory: no crackles, no wheezes, No reduced air movement Gastrointestinal: normoactive bowel sounds, no tenderness Skin: no abrasions, no ulcers, warm - Images Body Front/Back: 1 - SMALL HEMATOMA AND MILD ECCHYMOSIS POST IABP REMOVAL WITH AID OF FEMSTOP DEVICE - . Pending Discharge Within 48 Hours: Yes ICD10 Worksheet Patient Problems: Problems Problem Status Onset ST elevation (STEMI) myocardial infarction involving left anterior descending coronary artery Acute Acute coronary syndrome Acute
[2018-03-31] MEDS: CARVEDILOL 3.125 MG TAB PO SCH (08:21)
[2018-03-31] MEDS: PRASUGREL HCL 10 MG TAB PO SCH (08:22)
[2018-03-31] MEDS: ROSUVASTATIN CALCIUM 20 MG TAB PO SCH (08:22)
[2018-03-31] MEDS: ASPIRIN EC 325 MG TAB PO SCH (08:23)
[2018-03-31] MEDS: ENOXAPARIN 100 MG/ML SYR SC SCH (08:23)
[2018-03-31] MEDS: EPLERENONE 25 MG TAB PO SCH (08:23)
[2018-03-31] MEDS: LISINOPRIL 5 MG TAB PO SCH (08:23)
--- NOTE | 2018-03-31 08:58 | CPEKG ---
Test Reason : OPEN Blood Pressure : / mmHG Vent. Rate : 072 BPM Atrial Rate : 072 BPM P-R Int : 177 ms QRS Dur : 100 ms QT Int : 361 ms P-R-T Axes : 028 075 076 degrees QTc Int : 396 ms Sinus rhythm Abnormal inferior Q waves Probable anteroseptal infarct, recent Confirmed by Dominick Jewell ([id number]) on 03/31/2018 8:58:04 AM Referred By: Confirmed By:Dominick Jewell
[2018-03-31] MEDS ORDERED: PERFLUTREN LIPID MICROSPHERES 1.1 MG/ML VIAL IV ONE (09:44)
--- NOTE | 2018-03-31 11:09 | ASMTCMCOM ---
CM Note CM Note Notes: Patient continues to make good clinical progress. Supported by his girlfriend. Is ambulating. No discharge needs anticipated. Date Signed: 03/31/2018 11:00 AM Electronically Signed By:Starla Deluna RN
--- NOTE | 2018-03-31 13:27 | PDINTPN ---
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 Constipation: Exacerbated by able immobility from intra-aortic balloon pump. Plan: Stool softener. Activity as tolerated. Probably can go home if echocardiogram is unremarkable. Overnight oximetry after discharge to assess for hypoxemia altitude. 03/31/18 13:26 Subjective: Feels well. Denies dyspnea chest pain. No discomfort at groin site. Objective: Vital Signs Temp Pulse Resp BP Pulse Ox 36.8 C 89 16 106/76 100 03/31/18 12:00 03/31/18 12:00 03/31/18 12:00 03/31/18 12:00 03/31/18 12:00 Laboratory Results 03/30/18 05:10 03/30/18 03/31/18 04/01/18 05:59 05:59 05:59 Intake Total 1150 500 Output Total 1500 1250 Balance -350 -750 Physical Exam - Physical Exam General Appearance: alert, no apparent distress EENT: normal ENT inspection Neck: normal inspection Respiratory: normal breath sounds Cardiac/Chest: regular rate, rhythm, No edema Abdomen: normal bowel sounds, non-tender Skin: normal color, warm/dry Extremities: normal inspection Neuro/Psych: alert, normal mood/affect, oriented x 3 ICD10 Worksheet Patient Problems: Problems Problem Status Onset Acute coronary syndrome Acute ST elevation (STEMI) myocardial infarction involving left anterior descending coronary artery Acute
--- NOTE | 2018-03-31 15:19 | ECHO ---
[email or web address] [id number] Main: [phone] Fax: Transthoracic Echocardiogram Name: MODESTA DE LEON MR#: [id number] Study Date: 03/31/2018 Study Time: 09:53 AM Date of : 1970 Age: 48 year(s) Height: ( ) Weight: ( ) BSA: Gender: Male Examination: Limited Echo with Definity Indication: Limited echocardiogram with definity to rule out apical thrombus Image Quality: Adequate Contrast: 0.240 mg I.V. dose of Definity was administered to improve endocardial border definition. Requested by: Kaden Alberto BP: 119 mmHg/71 mmHg Heart Rate: Rhythm: Indication: Limited echocardiogram with definity to rule out apical thrombus Procedure Staff Forestry Instructor: Erika Augustine [facility] Reading Physician: Kaden Alberto MD Requesting Provider: Conclusions: There is no evidence of swirling blood flow in the small apical hypokinesis. I think the risk of an apical thrombus developing in this area is quite low and the risk of triple therapy in regards to bleeding would be higher than the expected benefit. Measurements: Chambers Valvular Assessment AV/MV Valvular Assessment TV/PV Normal Normal Normal Name Value Range Name Value Range Name Value Range LVEF (BP): 59 % (>=55 %) Continued Measurements: Findings: Left Ventricle: Normal size left ventricle. Small apical anuerysm noted. No apical thrombus. Apical hypokinesis with remaining burns normal function. Preserved left ventricular systolic function. (No Signature Object) Patient: MODESTA DE LEON Study Date: 03/31/2018 Page 1 of 1 09:53 AM [id number]
[2018-03-31 15:24] VITALS: BP 104/76
--- NOTE | 2018-04-01 04:52 | GDS ---
DISCHARGE DIAGNOSES: 1. Anterior ST-elevated myocardial infarction, status post stenting to the mid left anterior descend ing with a 3.0 x 20 mm Synergy drug-eluting stent into the proximal left anterior descending artery w ith a 3.5 x 32 mm Synergy drug-eluting stent. 2. Intra-aortic balloon pump insertion. 3. Ischemic cardiomyopathy with an ejection fraction of 25% on admission, which improved to 50% at t he time of discharge. 4. Hyperlipidemia. HOSPITAL COURSE: For a detailed H and P, please see prior dictation. Briefly, the patient is a 48-year-old male who presented with acute coronary syndrome and hyperacute T waves consistent with a probable LAD occlusion. There was a delay in obtaining the patient's conse nt which delayed the door to balloon time. His initial coronary angiogram revealed an LAD which bifu rcated into an LAD and left circumflex system. The left circumflex was free of flow-limiting disease . The LAD showed a hazy region in the proximal segment of the LAD, after which there is dye streamin g into the 2nd diagonal and then a flush occlusion of the LAD consistent with a thrombotic and emboli c myocardial infarction involving the LAD territory. The mid LAD was stented with a 3.0 x 20 Synergy drug-eluting stent, and the proximal LAD was stented with 3.5 x 32 Synergy drug-eluting stent. The right system had no evidence of a flow-limiting obstruction, dissection, or thrombus. His ejection f raction was measured at 25%. Because of his depressed ejection fraction, he was placed on intra-aortic balloon pump for 36 hours. He was transferred to the ICU in stable condition. He was started on good medical therapy including CHAD inhibitor, statin, beta yelitza, aspirin, Effient, and aldosterone antagonist. The patient did well throughout his hospitalization. A limited echo the day of discharge revealed an improvement in his ejection fraction to 50% without evidence of a significant left apical aneurysm o r thrombus. He was monitored on telemetry and had rare ventricular ectopy that improved throughout h is hospitalization. His troponin peaked at 92.2. On the day of discharge, he denied any chest discomfort. His groins where access was obtained for th e angiogram were clean, intact, without any evidence of infection or hematoma. He had no significant discomfort at the groin sites. DISCHARGE MEDICATIONS: Crestor 20 mg daily, Effient 10 mg daily, Zestril 5 mg daily, Inspra 50 mg da rafi, Coreg 3.125 mg b.i.d., aspirin 325 mg daily, omega fatty acids 1000 mg daily, Refresh eye drops daily. PLAN: The patient is currently stable and ready for discharge home. He has been given groin precaut ions. He is aware that he is to remain on aspirin and Effient for a minimum of 1 year. He will foll ow up with Sumaya, our nurse practitioner, on April 02 at [facility]. Greater than 30 minutes was spent coordinating the patient's care today. /[id number]/MODL
== END 2018-03-31 17:09 | disposition home or self-care (01) | DRG 272 ==
LOC: F2N 11:31
PROVIDERS: ADMIT Internal Medicine Cardiovascular Disease; ATTEND Internal Medicine Cardiovascular Disease
DX: I21.09 ST elevation (STEMI) myocardial infarction involving other coronary artery of anterior wall (principal); I25.10 Atherosclerotic heart disease of native coronary artery without angina pectoris; I10 Essential (primary) hypertension; I25.5 Ischemic cardiomyopathy; E78.5 Hyperlipidemia, unspecified; I25.2 Old myocardial infarction
CPT/HCPCS: 84484-PO; 96374; C1725; C1757; C1769; C1874; C1887; C8924; C9600; C9606; J0130; J0583; J1644; J1650; J2250; J2270; J2405; J3010; Q9957; Q9967